=== PATIENT | female | born 1970 | race Caucasian/White ===

== ENCOUNTER 2018-06-16 12:11 | Emergency (ER) | payer OTHER ==
[2018-06-16 13:46] VITALS: BP 123/79
--- NOTE | 2018-06-16 14:19 | UC ---
Skin Complaint HPI - HPI Summary HPI Summary: Yesterday night felt a sting then burn at L lower abd skin area during her work break.. Noticed small blisters with pus then pain went away and now skin is very red, nontender and skin is sloughing off. 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 No new antibiotics in the past month. - History of Current Complaint Chief Complaint: UCSkin Time Seen by Provider: 06/16/18 13:52 Stated Complaint: SKIN CONCERN-WC Hx Obtained From: Patient Hx Last Menstrual Period: 10/2017 ?: No Onset/Duration: Sudden Onset Skin Exposure Onset/Duration: Hours Ago - <24 hrs ago Pain Intensity: 0 Location: Discrete, Other - abd Aggravating Factor(s): Clothing - makes skin come off. - Allergy/Home Medications Allergies/Adverse Reactions: Allergies Allergy/AdvReac Type Severity Reaction Status Date / Time No Known Allergies Allergy Verified 06/16/18 13:46 Home Medications: Home Medications Cyanocobalamin (Vitamin B-12) [B-12] 1,000 mcg PO DAILY 06/16/18 [History Confirmed 06/16/18] Ibuprofen [Goodsense Ibuprofen] 800 mg PO ONCE PRN 06/16/18 [History Confirmed 06/16/18] Losartan/Hydrochlorothiazide [Losartan Potassium/Hydroc 100-25 mg] 1 tab PO DAILY 06/16/18 [History Confirmed 06/16/18] Potassium 99 mg PO DAILY 06/16/18 [History Confirmed 06/16/18] Vitamin A 8,000 unit PO DAILY 06/16/18 [History Confirmed 06/16/18] buPROPion HCl [Wellbutrin Sr] 200 mg PO DAILY 06/16/18 [History Confirmed ] PMH/Surg Hx/FS Hx/Imm Hx Previously Healthy: Yes Cardiovascular History: Hypertension - Surgical History Surgical History: Yes Surgery Procedure, Year, and Place: appendectomy, tubal ligation, laparoscopic abd, breast implants - Social History Alcohol Use: Occasionally Substance Use Type: None Smoking Status (MU): Never Smoked Tobacco Review of Systems All Other Systems Reviewed And Are Negative: Yes Constitutional: Negative: Fever Skin: Positive: Rash Physical Exam Triage Information Reviewed: Yes Appearance: Well-Appearing Vital Signs: Initial Vital Signs Temp 97.8 F 06/16/18 13:41 Pulse 74 06/16/18 13:41 Resp 18 06/16/18 13:41 BP 123/79 06/16/18 13:41 Pulse Ox 99 06/16/18 13:41 Vital Signs Reviewed: Yes Skin: Positive: Significant Lesion(s) - NOntender erythematous area on L lower abd near umbilicus, skin sloughing off w/ some exposure to raw skin underneath. No pain or drainage. Very shallow. Course/Dx - Course Course Of Treatment: Unclear source of this rash but concerning for some sort of unknown exposure to chemical vs. insect bite?. There is nothing to culture and no pain. could be a bullous pemphigoid family of skin disorders but should see derm first for possible biopsy. We will cover area to preserve skin. - Differential Diagnoses - Skin Complaint Differential Diagnoses: Cellulitis, Drug Rash, Impetigo, Tinea - Diagnoses Provider Diagnosis: Dermatitis Discharge - Sign-Out/Discharge Documenting (check all that apply): Patient Departure All imaging exams completed and their final reports reviewed: No Studies - Discharge Plan Condition: Good Disposition: HOME Patient Education Materials: Contact Dermatitis (ED) Referrals: Marj Helm MD [Medical Doctor] - 2 Days (consider Biopsy ) Additional Instructions: Please f/u with dermatology for possible biopsy. - Billing Disposition and Condition Condition: GOOD Disposition: Home
== END 2018-06-16 14:42 | disposition home or self-care (01) ==
LOC: UCCORT 12:11
DX: L30.9 Dermatitis, unspecified (principal); I10 Essential (primary) hypertension
CPT/HCPCS: 99211; 99212; G0463

== ENCOUNTER 2019-08-04 04:16 | Emergency (ER) | payer OTHER ==
--- NOTE | 2019-08-04 04:25 | ED ---
Complex/Multi-Sys Presentation - HPI Summary HPI Summary: 49 year old F with hx hypertension arriving via private car to [facility] complains of shortness of breath, chest tightness, left shoulder pain starting 0000 08/03 while at work. Went to work 2300 08/02. She was carrying and moving heavy items at work today. She was feeling fine at work then developed shortness of breath, chest tightness, and left shoulder pain. No dizziness, light headedness, headache, abdominal pain, n/v, diaphoresis, influenza-like symptoms. The patient rates the pain 7/10 in severity. Symptoms aggravated by exertion. Symptoms alleviated by nothing. No similar symptoms in the past. No recent illness. Medications reviewed. FHx [place]. Nonsmoker. - History Of Current Complaint Chief Complaint: EDShortnessOfBreath Hx Obtained From: Patient Onset/Duration: Lasting Hours - 4.5, Still Present Timing: Constant Severity Currently: Moderate - 7 Aggravating Factor(s): Exertion Alleviating Factor(s): Nothing - Allergies/Home Medications Allergies/Adverse Reactions: Allergies Allergy/AdvReac Type Severity Reaction Status Date / Time No Known Allergies Allergy Verified 08/04/19 05:06 Home Medications: Home Medications Cyanocobalamin (Vitamin B-12) [B-12] 1,000 mcg PO DAILY 06/16/18 [History Confirmed 08/04/19] Potassium 99 mg PO DAILY 06/16/18 [History Confirmed 08/04/19] Vitamin A 8,000 unit PO DAILY 06/16/18 [History Confirmed 08/04/19] Aspirin 81 mg PO DAILY 08/04/19 [History Confirmed 08/04/19] Losartan Potassium [Cozaar] 50 mg PO DAILY 08/04/19 [History Confirmed 08/04/19] Naltrexone TAB* 50 mg PO DAILY 08/04/19 [History Confirmed 08/04/19] Naproxen Sodium/Pseudoephedrin [Aleve Sinus and Headache Cplt] 1 tab PO BID PRN 08/04/19 [History Confirmed 08/04/19] buPROPion HCL [Bupropion Xl] 300 mg PO DAILY 08/04/19 [History Confirmed ] hydroCHLOROthiazide [Hydrochlorothiazide] 12.5 mg PO DAILY 08/04/19 [History Confirmed 08/04/19] PMH/Surg Hx/FS Hx/Imm Hx Endocrine/Hematology History: Denies: Hx Diabetes Cardiovascular History: Reports: Hx Hypertension - Surgical History Surgery Procedure, Year, and Place: appendectomy, tubal ligation, laparoscopic abd, breast implants Infectious Disease History: No Infectious Disease History: Denies: Traveled Outside the [place] in Last 30 Days - Family History Known Family History: Positive: Cardiac Disease - [place] - Social History Alcohol Use: Occasionally Substance Use Type: Reports: None Hx Tobacco Use: No Smoking Status (MU): Never Smoked Tobacco Review of Systems Positive: Other - chest tightness Positive: Shortness Of Breath Negative: Abdominal Pain, Vomiting, Nausea Positive: Other - left shoulder pain Neurological/Mental Status: Negative - Dizziness, light headedness Negative: Headache All Other Systems Reviewed And Are Negative: Yes Physical Exam - Summary Physical Exam Summary: Appearance: Well-appearing, Well-nourished, lying in bed comfortably Skin: Warm, dry, no obvious rash Eyes: sclera anicteric, no conjunctival pallor HENT: mucous membranes moist, pharynx appears normal Neck: Supple, nontender Respiratory: Clear to auscultation, no signs of respiratory distress Cardiovascular: Normal S1, S2. No murmurs. Normal distal pulses in tibial and radial bilaterally. Abdomen: Soft, nontender, normal active bowel sounds present Musculoskeletal: Normal, Strength/ROM Intact Neurological: A&Ox3, awake and alert, mentation is normal, speech is fluent and appropriate Psychiatric: affect is normal, does not appear anxious or depressed Triage Information Reviewed: Yes Vital Signs On Initial Exam: Initial Vitals Temp Pulse Resp BP Pulse Ox 97 F 88 20 163/97 99 08/04/19 04:18 08/04/19 04:18 08/04/19 04:18 08/04/19 04:18 08/04/19 04:18 Vital Signs Reviewed: Yes Procedures - Sedation Patient Received Moderate/Deep Sedation with Procedure: No Diagnostics - Vital Signs Vital Signs Temp Pulse Resp BP Pulse Ox 08/04/19 04:18 97 F 88 20 163/97 99 - Laboratory Result Diagrams: 08/04/19 04:58 08/04/19 04:58 Lab Statement: Any lab studies that have been ordered have been reviewed, and results considered in the medical decision making process. - Radiology CXR Radiology Interpretation Completed By: ED Physician - NO ACUTE PROCESS. PENDING OFFICIAL REPORT. - EKG 0444 Summary of EKG Findings: NSR at 80 BPM, P waves, QRS complex, and T waves are within normal limits, T waves and intervals are normal, no ischemic changes. This is a normal EKG. ED physician has reviewed and interpreted this EKG. Re-Evaluation - Re-Evaluation First Eval Re-Evaluation Time: 05:41 Change: Improved - patient updated on plan of care Second Eval Re-Evaluation Time: 08:50 Change: Improved - second troponin negative, no pain. Discharge to home Complex Multi-Symp Course/Dx Course Of Treatment: 49 y/o F with hx hypertension c/o shortness of breath, chest tightness, left shoulder pain which are aggravated by exertion and started at 0000 08/03 while she was at work. No similar symptoms in the past. FHx [place]. Nonsmoker. She does have a h/o DVT. Physical exam unremarkable. Bloodwork results with no significant abnormalities except for creatinine 1.27. An EKG shows NSR at 80 BPM, P waves, QRS complex, and T waves are within normal limits, T waves and intervals are normal, no ischemic changes. This is a normal EKG. CXR shows no acute process. Patient will be signed out to Dr. Capo Vazquez upon shift change 08/04/2019 0700 pending second troponin and disposition. - Diagnoses Differential Diagnoses/HQI/PQRI: Other - PE, ACS, ME, musculoskeletal pain, cervical radiculopathy Provider Diagnoses: Left shoulder pain, Dyspnea Discharge ED - Sign-Out/Discharge Documenting (check all that apply): Sign-Out Patient Signing out patient TO: Capo Vazquez - Discharge Plan Condition: Good Disposition: HOME Patient Education Materials: Shoulder Pain (ED) Referrals: Miles Comer PA [Primary Care Provider] - 1 Week Additional Instructions: We did not find anything worrisome on the tests we ran tonight, so it is safe to let you go home. Pay attention to your symptoms over the course of the weekend, sometimes it takes a period of waiting to see how an illness evolves to make a diagnosis. So if you start feeling much worse or develop new symptoms we should see you back. - Billing Disposition and Condition Condition: GOOD Disposition: Home - Attestation Statements Document Initiated by Scribe: Yes Documenting Scribe: Jenna Diaz Provider For Whom Scribe is Documenting (Include Credential): Alber Phillips MD Scribe Attestation: I, Jenna Diaz, scribed for Alber Phillips MD on 08/08/19 at 0616. Scribe Documentation Reviewed: Yes Provider Attestation: The documentation as recorded by the scribe, Jenna Diaz accurately reflects the service I personally performed and the decisions made by me, Alber Phillips MD Status of Scribe Document: Viewed
[2019-08-04 05:17] LABS: ABS Eosinophils 0.1 10^3/ul (0-0.6); ABS Lymphocytes 2.1 10^3/ul (1.0-4.8); ABS Monocytes 0.5 10^3/ul (0-0.8); ABS Neutrophils 3.8 10^3/ul (1.5-7.7); Eosinophil % 1.6 %; Hematocrit 42 % (35-47); Hemoglobin 14.4 g/dL (12.0-16.0); Lymphocyte % 32.3 %; Mean Corpuscular HGB Conc 34 g/dL (31-36); Mean Corpuscular Hemoglobin 31 pg (27-31); Mean Corpuscular Volume 89 fL (80-97); Mean Platelet Volume 9.1 fL (7.4-10.4); Nucleated Red Blood Cells % 0.1; Platelet Count 240 10^3/uL (150-450); Red Blood Count 4.67 10^6 /uL (3.70-4.87); Red Cell Distribution Width 13 % (10-15); White Blood Count 6.5 10^3/uL (3.5-10.8)
[2019-08-04 05:35] LABS: Albumin 4.7 g/dL (3.2-5.2); Albumin/Globulin Ratio 1.7 (1-3); BUN/Creatinine Ratio 16.5 (8-20); Calcium 10.1 mg/dL (8.6-10.3); EGFR African American 53.7 (>60); EGFR Non-African American 44.4 (>60); Globulin 2.7 g/dL (2-4); Potassium 3.7 mmol/L (3.5-5.0); Total Bilirubin 0.4 mg/dL (0.2-1.0); Total Protein 7.4 g/dL (6.4-8.9)
--- NOTE | 2019-08-04 07:04 | ED ---
Progress - Progress Note Progress Note: This patient was signed out from upon shift change 0700 08/04/2019, awaiting second troponin and pending disposition. 0850: 2nd troponin was negative and patient was discharged home. Re-Evaluation - Re-Evaluation First Eval Re-Evaluation Time: 05:41 Change: Improved - patient updated on plan of care Second Eval Re-Evaluation Time: 08:50 Change: Improved - second troponin negative, no pain. Discharge to home Course/Dx - Course Course Of Treatment: 49 y/o F with hx hypertension c/o shortness of breath, chest tightness, left shoulder pain which are aggravated by exertion and started at 0000 08/03 while she was at work. No similar symptoms in the past. FHx [place]. Nonsmoker. She does have a h/o DVT. Physical exam unremarkable. Bloodwork results with no significant abnormalities except for creatinine 1.27. An EKG shows NSR at 80 BPM, P waves, QRS complex, and T waves are within normal limits, T waves and intervals are normal, no ischemic changes. This is a normal EKG. CXR shows no acute process. Patient will be signed out to Dr. Capo Vazquez upon shift change 08/04/2019 0700 pending second troponin and disposition. - Diagnoses Provider Diagnoses: Left shoulder pain, Dyspnea Discharge ED - Sign-Out/Discharge Documenting (check all that apply): Patient Departure - Discharge Plan Condition: Good Disposition: HOME Patient Education Materials: Shoulder Pain (ED) Referrals: Miles Comer PA [Primary Care Provider] - 1 Week Additional Instructions: We did not find anything worrisome on the tests we ran tonight, so it is safe to let you go home. Pay attention to your symptoms over the course of the weekend, sometimes it takes a period of waiting to see how an illness evolves to make a diagnosis. So if you start feeling much worse or develop new symptoms we should see you back. - Billing Disposition and Condition Condition: GOOD Disposition: Home - Attestation Statements Document Initiated by Scribe: Yes Documenting Scribe: Dhruv Cox Provider For Whom Kiara is Documenting (Include Credential): Dr.Caelyn Chapo Vazquez MD Scribe Attestation: I, Dhruv Cox, scribed for Dr.Caelyn Chapo Vazquez MD on 08/04/19 at 1606. Scribe Documentation Reviewed: Yes Provider Attestation: The documentation as recorded by the scribe, Dhruv Cox accurately reflects the service I personally performed and the decisions made by me, Dr.Caelyn Chapo Vazquez MD Status of Scribe Document: Viewed
[2019-08-04 09:06] VITALS: BP 111/64
== END 2019-08-04 09:05 | disposition home or self-care (01) ==
LOC: ED 04:16
DX: M25.512 Pain in left shoulder (principal); R06.00 Dyspnea, unspecified; I10 Essential (primary) hypertension; Z90.89 Acquired absence of other organs; Z98.51 Tubal ligation status; Z79.82 Long term (current) use of aspirin; Z79.899 Other long term (current) drug therapy
CPT/HCPCS: 36415; 71046; 80053; 84484; 85025; 85379; 93005; 99283